=== PATIENT | male | born 1965 | race Caucasian/White ===

== ENCOUNTER → 2024-02-15 12:51 | Outpatient (REF) | payer OTHER, SELFPAY | LOC: HWRAD 12:51 | PROVIDERS: ATTENDING PHYSICIAN Surgery; FAMILY PHYSICIAN Internal Medicine | DX: R10.32 Left lower quadrant pain (principal); N50.812 Left testicular pain | CPT/HCPCS: 72194; Q9967 ==

== ENCOUNTER 2024-06-10 05:56 | Day surgery (SDC) | payer OTHER, SELFPAY ==
[2024-06-04 14:02] VITALS: BMI 34.5
[2024-06-10] VITALS (11 sets, daily range): BP systolic 117–150; BP diastolic 72–97; BMI 34.5
[2024-06-10] MEDS: TYLENOL 1000 MG PO (06:35)
[2024-06-10] MEDS: NORMOSOL-R 1000 IV (06:35)
--- NOTE | 2024-06-10 09:31 | W.SUR.PREOP ---
Pre-Operative Surgical Note
-
I have examined this patient prior to the performance of the scheduled procedure.
The patient's condition is unchanged from the time of the current History and
Physical and the patient is able to undergo the scheduled procedure.
--- NOTE | 2024-06-10 09:31 | W.IMMPOSTOP ---
Surgical Immed Post Op Note
-
Primary Surgeon: Zach Cervantes MD
Assisting Surgeon: None
Pre-op Diagnosis: Left inguinal hernia
Post-op Diagnosis: Same
Procedure Performed: Robotic left inguinal hernia repair with mesh
Anesthesia Type: General
Specimen / Cultures: Left cord lipoma
Estimated Blood Loss: 7 cc
Complications: None
Operative Findings: Visible left retroperitoneal bulge noted in the left iliac space. Very large retroperitoneal cord lipoma, carefully dissected off of the testicular vessels, truncated/partially excised. Inguinal floor reinforced with a large
left mid weight Bard soft mesh.
POST OP PLAN:
Will discharge home after voiding, with an ice pack.
--- NOTE | 2024-06-10 09:34 | OR.RPT ---
Operative Report
Operative Report
Patient Name: Fran Aponte
: 1965
Date of Operation: 06/10/2024
Preoperative Diagnosis: Incarcerated left inguinal hernia
Postoperative Diagnosis: Same
Procedure(s):
Robotic left inguinal Hernia Repair with mesh, (NICK approach)
Surgeon(s):
Dr. Cervantes
Medical Transcription Editor(s):
GAYE Miles
Anesthesia: General
Estimated Blood Loss: 7 cc
Urine Output: None
Drains/Lines/Implants: Large 3D Max Bard mid weight mesh
Specimens: left cord lipoma
Indication for surgery: The patient has a history of groin pain and obesity who was seen in the office and not found to have an impulse or inguinal hernia on exam. A CT scan was performed which demonstrated a fat-containing left inguinal hernia,
consistent with a cord lipoma. Following review of therapeutic options they have elected to undergo a minimally invasive repair.
Findings at the time of surgery:
Patient had a visible bulge over the left iliac space. Very large retroperitoneal cord lipoma dissected off of the underlying testicular vessels and ligated/removed. The inguinal floor was reinforced with a large BARD 3D max mid-weight mesh.
There was no direct or femoral defects.
Details of the operation:
The patient was brought to the Operating Room and placed in the supine position with the arms tucked. IV antibiotics were infused and Venodyne stockings placed. Following uneventful induction of general endotracheal anesthesia, an orogastric tube
were placed. The abdomen was prepped and draped in the usual sterile fashion. The abdomen was entered using a Veress technique which required 1 pass(es), pneumoperitoneum to 15 mmHg was obtained without difficulty. A 8mm trochar was passed through
the abdominal wall roughly 20 cm cephalad to the inguinal canal. We then confirmed that no inadvertent injury was made while passing the trocar or Veress needle. We then placed two additional 8 mm ports in the left upper and right upper quadrants.
We then docked the robot with a Prograsper in the left hand port and monopolar scissors in the right. A bulge over the left retroperitoneum was readily apparent. We did manipulate this slightly which caused some superficial bleeding which was
cauterized. We then began by creating a flap at the level of the ASIS laterally working our way medially to the medial umbilical fold. Staying onto the peritoneum we were able to circumferentially dissect around the peritoneum and and peel it off
of the underlying spermatic cord, taking care to preserve it. This left very large fatty tissue extending from the retroperitoneum up into the hernia defect. We painstakingly dissected off of the underlying testicular vessels and reduced it to the
level of our peritoneal flap and truncated it. Medially we identified the midline pubis as well as Arik's ligament and ensured to dissect 2 cm below the pubic rim over the bladder. After exposure of the entire myopectineal orifice we identified
and reduced: A medium sized indirect inguinal hernia, no direct inguinal hernia, no femoral hernia, a very large cord lipoma, which was partially removed
We then fixated a large 3D max mesh with a 2-0 Vicryl stitch at coopers medially and superior laterally. The flap was then closed with a running 2-0 barbed monocryl suture ensuring that the tail was cut flush with the medial fat pad so that no
barbs were exposed. During the closure of the flap an Angiocath was inserted and 20 cc of quarter percent Marcaine was instilled. The area in the flap cavity was then evacuated of air confirming that the mesh was flush and there were no folds. A
small rent in the peritoneum was noted and closed with 2-0 Vicryl. All needles and instruments were then removed and the robot was undocked. The abdomen was then desufflated, and pneumoperitoneum evacuated. All skin sites were then closed with 4-0
Monocryl followed by Dermabond. Counts were correct and overall, the patient tolerated the procedure well and was taken to the Recovery Room postoperatively in stable condition.
I was the attending physician and performed the procedure with assistance of the CAREER DEVELOPMENT COORDINATOR above. I was present for all portions of the case
Zach Cervantes MD
[2024-06-10] MEDS: DILAUDID 0.5 MG IV ×2 (10:24→10:40)
== END 2024-06-10 12:24 | disposition home or self-care (01) ==
LOC: SDS 05:56
PROVIDERS: ATTENDING PHYSICIAN Surgery; FAMILY PHYSICIAN Internal Medicine; OTHER PHYSICIAN Internal Medicine Cardiovascular Disease
DX: K40.30 Unilateral inguinal hernia, with obstruction, without gangrene, not specified as recurrent (principal); D17.6 Benign lipomatous neoplasm of spermatic cord
CPT/HCPCS: 49650; 88304; 93005; C1781

== ENCOUNTER 2025-02-23 19:38 | Inpatient (IN) | payer OTHER, SELFPAY ==
[2025-02-23] VITALS (8 sets, daily range): BP systolic 116–143; BP diastolic 75–90; PULSE 68–80; BMI 28.9
[2025-02-23 13:53] LABS: % Basophils 0.6 % (0-2); % Eosinophils 6.4 % (0-6); % Immature Granulocytes 0.8 % (0-0.5); % Lymphocytes 32.1 % (20.5-51.1); % Monocytes 8.4 % (1.7-9.3); % Neutrophils 51.7 % (42.2-75.2); Absolute Eosinophils 0.3 10^3/uL (0-0.7); Absolute Lymphocytes 1.7 10^3/uL (1.2-3.4); Absolute Monocytes 0.5 10^3/uL (0.1-0.6); Absolute Neutrophils 2.8 10^3/uL (1.4-6.5); Hematocrit 30.1 % (39.0-52.0); Hemoglobin 10.7 g/dL (13.0-18.0); Mean Corp Hgb Conc. 35.5 g/dL (33.0-37.0); Mean Corpuscular Volume 87.2 fL (80.0-94.0); Mean Platelet Volume 11.3 fL (7.4-10.4); Nucleated Red Blood Cells % 0 % (-); Platelet Count 212 10^3/uL (130-400); Red Blood Cell Count 3.45 10^6/uL (4.70-6.10); Red Cell Dist. Width 12.4 % (11.5-14.5); White Blood Cell Count 5.3 10^3/uL (4.8-10.8)
[2025-02-23 14:11] LABS: ALT (SGPT) 23 U/L (0-50); AST (SGOT) 24 U/L (17-59); Albumin 4.1 g/dl (3.5-5.0); Alkaline Phosphatase 57 U/L (38-126); Blood Urea Nitrogen 35 mg/dl (9-20); Carbon Dioxide 29 mmol/L (22-30); Chloride 104 mmol/L (98-107); Glucose 106 mg/dl (70-99); Lipase 440 U/L (23-300); Potassium 3.8 mmol/L (3.5-5.1); Sodium 140 mmol/L (135-145); Total Bilirubin 0.5 mg/dl (0.2-1.3); Total Protein 6.5 g/dl (6.3-8.2); eGFR > 60.00
--- NOTE | 2025-02-23 18:10 | ED.GENMED ---
History of Present Illness
General
Chief Complaint: Rectal Bleeding
Source: patient
Exam Limitations: none
Time Seen by Provider: 02/23/25 17:34
Nursing documentation reviewed up to this point in time: agreed with
History of Present Illness
History of Present Illness:
60-year-old male past medical history of hypertension hyperlipidemia, GERD presenting to the emergency department today with concerns of black tarry stool starting yesterday ongoing today no significant abdominal pain but did have endoscopy and
colonoscopy with polyp removed 5 days ago. Has had some lightheadedness today. Baseline hemoglobin in 14's.
Past History
Past History
ED Past Medical History: None
ED Past Surgical History: None
Social History
Tobacco: Non-smoker
Review of Systems
Review of Systems
Allergies reviewed?: Yes
All Other Systems: ROS reviewed and negative except as documented in HPI and ROS
Phy Exam
Physical Exam
Physical Exam:
GENERAL: Alert , in no apparent distress
EYE: pupils equal and reactive
NECK: Supple, no significant adenopathy.
ENT: o/p clr, mmm.
CARDIAC: Regular rate and rhythm .
LUNGS: Clear breath sounds bilaterally, no acute respiratory distress, no wheezes/rales/rhonchi
ABDOMEN: Rectal examination revealing black tarry stool guaiac positive, abdomen is otherwise soft, without focal tenderness, no r/g, no cvat
NEUROLOGICAL: Alert and oriented, no focal neuro deficits
SKIN: Warm and dry, skin intact.
MUSCULOSKELETAL: No edema, well perfused.
PSYCH: Normal and appropriate interaction.
Course
Orders/Labs/Results
Orders:
Orders
02/23/25 13:35
Type+Screen Urgent
Complete Blood Count/With Diff Urgent
Comprehensive Metabolic Panel Urgent
Lipase Urgent
02/23/25 17:19
ABO2 Urgent
BBK Wristband Number:
Associate notified that ABO2 has been ordered: JASON
Date: 02/23/25
Time: 13:51
Infection Prevention Specialist ID: [id number]
02/23/25 17:47
0.9% Sodium Chloride 500 ml [Nss] 500 ml IV BOLUS
Pantoprazole [Protonix IV] 80 mg IV NOW STA
Abnormal Lab Results
02/23/25
13:35
RBC 3.45 L 10^6/uL
(4.70-6.10)
Hgb 10.7 L g/dL
(13.0-18.0)
Hct 30.1 L %
(39.0-52.0)
MPV 11.3 H fL
(7.4-10.4)
Immature Gran % 0.8 H %
(0-0.5)
Eosinophils % 6.4 H %
(0-6)
BUN 35 H mg/dl
(9-20)
Glucose 106 H mg/dl
(70-99)
Lipase 440 H U/L
(23-300)
02/23/25 13:35
02/23/25 13:35
Vital Signs
Initial and Last Documented VS:
Initial Vital Signs
Temp Pulse Resp BP Pulse Ox
98.4 F 75 18 143/89 98
02/23/25 13:27 02/23/25 13:27 02/23/25 13:27 02/23/25 13:27 02/23/25 13:27
Last Documented Vital Signs
Temp Pulse Resp BP Pulse Ox
98.4 F 75 18 123/86 97
02/23/25 13:27 02/23/25 13:27 02/23/25 13:27 02/23/25 17:09 02/23/25 17:20
MDM/Problems Addressed
MDM/Problems Addressed:
60-year-old male presenting to the emergency department today with concerns of black tarry stools starting yesterday. Had recent endoscopy with polyp removal 5 days ago with a GI doctor from [facility]. Vital signs normal on arrival here.
Hemoglobin of 10.7 baseline is typically in the 14's most recently in September. Patient did have this record on his phone from [employer]. Otherwise no abdominal pain plan to admit for monitoring. Patient started on Protonix.
*Critical Care Note
Total Time (30-74mins, 75-104mins- exclusive of procedures): Not Applicable
ED Attending Note
-
Portions of this chart may have been created with voice recognition software.� Occasional wrong word or��sound alike� substitutions may have occurred due to the inherent limitations of voice recognition software.
Discharge Plan
Departure
Patient Disposition: Admit
Date of Disposition: 02/23/25
Time of Disposition: 18:13
Admit to: Med/Surg
Admit to doctor: Dona
Presentation/result/management discussed w/ accepting MD/DO: Hospitalist
Patient with high blood pressure during this ER visit?: No
Condition: Good
Covid-19: Not Applicable
Discharge Problem:
Acute upper GI bleed
Prescriptions:
No Action
omeprazole 40 mg Capsule,Delayed Release(Dr/Ec)
40 mg PO BID
loratadine [Claritin] 10 mg Tablet
10 mg PO DAILY
eplerenone 50 mg Tablet
50 mg PO BID
amlodipine-benazepril 10-40 mg Capsule
1 cap PO DAILY
fenofibrate nanocrystallized 145 mg Tablet
145 mg PO DAILY
nebivolol 20 mg Tablet
20 mg PO DAILY
acetaminophen [acetaminophen] 325 mg tablet
650 mg PO Q6HPRN PRN (Reason: mild pain) Qty: 14 0RF
ibuprofen 600 mg tablet
600 mg PO Q6H PRN (Reason: pain) Qty: 14 0RF
Referrals:
Kari Villasenor DO [Family Provider] -
Interventions
Interventions:
*Risk Screen - Suicide Last Done: 02/23/25 13:27
*General Assessment Last Done: 02/23/25 13:27
*Neglect/Abuse Screening Last Done: 02/23/25 13:27
*ED- Fall Risk Assessment Last Done: 02/23/25 17:22
*ED COVID-19 Vaccine History Last Done: 02/23/25 17:22
PV-Frbiis-Klkhhiyofw Assessment Last Done: 02/23/25 17:22
ED- Cardiac Assessment Last Done: 02/23/25 17:22
ED- Pulmonary Assessment Last Done: 02/23/25 17:22
Discharge Date and Time
Print Language: BULGARIAN
[2025-02-23] MEDS: PROTONIX IV 80 MG IV (18:26)
[2025-02-23] MEDS: NSS 500 IV (18:27)
--- NOTE | 2025-02-23 18:42 | HPS.HSE ---
Addendum entered and electronically signed by Jesús Roberson DO 02/23/25 21:36:
Patient seen and examined independently. Agree with findings and plan as set forth by Annie Beltrán PA-C.
Patient is a 60y M with PMH significant for GERD / Goodwin's esophagus who presents to ED complaining of black, tarry stools since yesterday and general fatigue / malaise. Patient underwent EGD and colonoscopy on Monday at an outside GI
center (Dr. Holley). He had 'multiple' polypectomies done during the EGD - as well as esophageal biopsies. Patient felt well until Monday when he states he 'felt like crap' and noted the dark colored stools.
Ass:
Post-Polypectomy Bleeding / UGIB
Acute Blood Loss Anemia secondary to the above
GERD / Goodwin's Esophagus
Benign Hypertension
CASSY on CPAP
Plan:
Admit for further evaluation and treatment.
IV PPI.
Follow H&H and transfuse if needed.
GI evaluation for additional recommendations / possible repeat EGD.
Original Note:
Family Physician
-
Family Physician: Kari Villasenor
Chief Complaint
-
Black Tarry Stools
History of Present Illness
Patient is a 60 y/o male past medical history of hypertension, hyperlipidemia, asthma, and GERD / Goodwin's Esophagus who presents with black tarry stools. Patient had an upper endoscopy and colonoscopy on Monday with Dr Holley at [facility]. Patient reports during the procedure they took biopsy of his esophagus and also removed some polyps in the stomach / small intestine. Yesterday patient developed black stools. Today he noted dizziness which prompted him to come to the
emergency department for evaluation.
Medical History
Past Medical History
Past Medical History: Reports Other
Additional Past Medical History:
Essential Hypertension
Hyperlipidemia
Asthma
Obstructive Sleep Apnea
Psoriasis
GERD / Goodwin's Esophagus
Past Surgical History: Reports Other
Additional Past Surgical History:
Right MCL Repair
Left Inguinal Hernia Repair with Mesh
Social History
Tobacco: Non-smoker
Alcohol: Occasional
Family History
Family History: Not pertinent
Allergies / Home Medications
Allergies reflects when Allergies were last updated in [employer].
Home Medications with original date entered in [employer]
Allergy/Medication List:
Allergies
Allergy/AdvReac Type Severity Reaction Status Date / Time
banana Allergy Itching Verified 02/23/25 13:27
codeine Allergy '[place] like Verified 02/23/25 13:27
I was
dying'
Penicillins Allergy Unknown Verified 02/23/25 13:27
cantalope Allergy Hives Uncoded 06/10/24 06:20
Home Medications
amlodipine 10 mg-benazepril 40 mg capsule 1 cap PO QPM 06/05/24
eplerenone 50 mg tablet 50 mg PO BID 06/05/24
fenofibrate nanocrystallized 145 mg tablet 145 mg PO NOON 06/05/24
loratadine 10 mg tablet (Claritin) 10 mg PO DAILY 06/05/24
nebivolol 20 mg tablet 20 mg PO DAILY 06/05/24
omeprazole 40 mg capsule,delayed release 40 mg PO BID 06/05/24
acetaminophen 325 mg tablet 650 mg (2 x 325 mg) PO Q6HPRN PRN mild pain #14 tabs 06/10/24
ibuprofen 600 mg tablet 600 mg PO Q6H PRN pain #14 tabs 06/10/24
atorvastatin 20 mg tablet 20 mg PO HS 02/23/25
fluticasone furoate 200 mcg-vilanterol 25 mcg/dose inhalation powder (Breo Ellipta) 1 inh inhalation DAILYPRN PRN sob 02/23/25
tirzepatide 5 mg/0.5 mL subcutaneous pen injector (Mounjaro) 5 mg SC TH 02/23/25
Review of Systems
-
A 12 point ROS was completed and negative except as noted: Yes
Constitutional: Denies Fever or Chills
Respiratory: Denies Cough or Trouble Breathing
Cardiac: Denies Chest Pain or Palpitations
Physical Exam
Vital Signs
Vital Signs
Temp Pulse Resp BP Pulse Ox
98.4 F 75 18 130/84 97
02/23/25 13:27 02/23/25 13:27 02/23/25 13:27 02/23/25 18:00 02/23/25 18:15
Physical Exam
General: Comfortable, Conversant and Other (Appears slightly pale)
HEENT: Anicteric and Moist mucous membranes
Respiratory: Clear and Non Labored Respirations
Cardiac: S1/S2 and Regular Rhythm
GI: Soft and Non Tender
Rectal: Hem Positive (Per ED provider)
Musculoskeletal: No Clubbing and No Cyanosis
Skin: Warm and Dry
Neuro: Awake, Alert, Oriented and Nonfocal/grossly intact
Psych: Calm
Laboratory Results
-
02/23/25 13:35
02/23/25 13:35
Laboratory Results
Total Bilirubin 0.5 mg/dl (0.2-1.3) 02/23/25 13:35
AST 24 U/L (17-59) 02/23/25 13:35
ALT 23 U/L (0-50) 02/23/25 13:35
Alkaline Phosphatase 57 U/L (38-126) 02/23/25 13:35
Lipase 440 U/L (23-300) H 02/23/25 13:35
Data Reviewed
-
Lab Data: Labs Reviewed by me
Impression/Plan
-
GI Bleed, likely upper in nature
-Attempt to obtain records from recent endoscopy procedures
-Consult GI
-Continue Protonix 40mg IV BID
-Continue NPO/IVFs
Acute Blood Loss Anemia secondary to GI Bleed
-Trend serial H&H
-Blood consent obtained by ED and scanned into medical chart
Essential Hypertension
-Continue amlodipine/benazepril, eplerenone and nebivolol with hold parameters
Hyperlipidemia
-Continue atorvastatin and fenofibrate
Obstructive Sleep Apnea
-Continue CPAP - Patient's will bring from home
DVT proph: SCDs
Code Status: Full Code
--- NOTE | 2025-02-23 19:47 | EDRN ---
Report received, patient ambulated into the restroom to urinate without difficulty, report sent to the floor, patient aware will go to room soon.
[2025-02-23 19:53] LABS: Hematocrit 29.4 % (39.0-52.0); Hemoglobin 10.6 g/dL (13.0-18.0)
[2025-02-23] MEDS: D5/0.45%NSS with KCL 10 MEQ 1000 IV (21:00)
[2025-02-23] MEDS: INSPRA 50 MG PO (21:08)
[2025-02-23] MEDS: LIPITOR 20 MG PO (21:10)
--- NOTE | 2025-02-24 00:14 | PTCARENOTE ---
Pt is a 60y M arrived on 2S at 20:25. Pt's PMH significant for GERD / Goodwin's esophagus also HTN, HLD, Sleep Apnea (CPAP), Arthritis, Psoriasis, presented to ED complaining of black, tarry stools since yesterday and general fatigue / malaise.
Pt underwent EGD and colonoscopy on Monday at an outside GI center (Dr. Holley). He had 'multiple' polypectomies done during the EGD - as well as esophageal biopsies. Pt felt well until Monday when he states he 'felt like crap' and noted
the dark colored stools. Pt NPO with IV fluids, Q8 H&H ordered. 4am, Noon, 20:00. Pt AOx3, bed in a low position, call light in reach, care on-going.
[2025-02-24 04:42] LABS: Hematocrit 26.4 % (39.0-52.0); Hemoglobin 9.2 g/dL (13.0-18.0)
--- NOTE | 2025-02-24 07:34 | CON.GI ---
Consultation
-
Date/Time Consultation Requested: 02/23/25
Date/Time Consultation Performed: 02/24/25
Requesting Provider: Da Espinosa
Performing Provider: Shyann Luna
Reason for Consultation: Melena
Medical History
Chief Complaint / HPI
Chief Complaint: Melena, post-polypectomy bleeding
History of Present Illness:
Early Fay is a 60-year-old male with past medical history of hypertension, CASSY on bipap, hyperlipidemia, asthma, fatty liver, long segment Goodwin's esophagus who presents with 1 day of black tarry stools following EGD and colonoscopy with
[facility] on 02/19/2025. He had his surveillance EGD for his Goodwin's with esophageal biopsies taken as well as multiple gastric polyps removed as well as a colonoscopy. He denies having any colon polyps removed. We are awaiting official
records from his procedures for review. States on monday night he had some nausea and decreased appetite. He felt he may be constipated, so took some miralax and then started having multiple episodes of watery black tarry stool, prompting him to
come in for evaluation. He denies blood thinners or regular use of NSAIDs. Denies prior GI bleeding in the past. He takes omeprazole 40mg BID, has been on it for over 5 years.
Hgb on arrival 10.7 --> 10.6 --> 9.2. No recent prior CBC to compare baseline. Reports last melenic bowel movement was yesterday at 10 AM. BUN elevated to 35. He has remained hemodynamically stable.
Past Medical History
Past Medical History: Other (hypertension, CASSY on bipap, hyperlipidemia, asthma, fatty liver, long segment Goodwin's esophagus)
Past Surgical History: Other (hernia repair)
Social History
Tobacco: Non-Smoker
Alcohol: Occasional
Family History
Family History: Reviewed & Not Pertinent
Allergies / Home Medications
Allergy/AdvReac Type Severity Reaction Status Date / Time
banana Allergy Itching Verified 02/23/25 13:27
codeine Allergy 'Breeding like Verified 02/23/25 13:27
I was
dying'
Penicillins Allergy Unknown Verified 02/23/25 13:27
cantalope Allergy Hives Uncoded 06/10/24 06:20
�Medication �Instructions �Recorded
amlodipine 10 mg-benazepril 40 mg 1 cap PO QPM 06/05/24
capsule
eplerenone 50 mg tablet 50 mg PO BID 06/05/24
fenofibrate nanocrystallized 145 145 mg PO NOON 06/05/24
mg tablet
loratadine 10 mg tablet (Claritin) 10 mg PO DAILY 06/05/24
nebivolol 20 mg tablet 20 mg PO DAILY 06/05/24
omeprazole 40 mg capsule,delayed 40 mg PO BID 06/05/24
release
acetaminophen 325 mg tablet 650 mg (2 x 325 mg) PO Q6HPRN PRN 06/10/24
mild pain #14 tabs
ibuprofen 600 mg tablet 600 mg PO Q6H PRN pain #14 tabs 06/10/24
atorvastatin 20 mg tablet 20 mg PO HS 02/23/25
fluticasone furoate 200 1 inh inhalation DAILYPRN PRN sob 02/23/25
mcg-vilanterol 25 mcg/dose
inhalation powder (Breo Ellipta)
tirzepatide 5 mg/0.5 mL 5 mg SC TH 02/23/25
subcutaneous pen injector
(Mounjaro)
Review of Systems
-
History Source: Patient
All other systems: A 12 pt ROS was Negative except as stated above in HPI
Vital Signs
Temp Pulse Resp BP Pulse Ox
98.1 F 68 18 129/75 98
02/23/25 22:07 02/23/25 22:07 02/23/25 22:07 02/23/25 22:07 02/23/25 22:07
Physical Exam
Exam
General: Well Developed, Well Nourished and No Apparent Distress
GI: Soft, Non Tender, Non Distended and Normal Bowel Sounds
Results
WBC 5.3 10^3/uL (4.8-10.8) 02/23/25 13:35
Hgb 9.2 g/dL (13.0-18.0) L 02/24/25 04:22
Hct 26.4 % (39.0-52.0) L 02/24/25 04:22
MCV 87.2 fL (80.0-94.0) 02/23/25 13:35
Plt Count 212 10^3/uL (130-400) 02/23/25 13:35
Absolute Neuts (auto) 2.8 10^3/uL (1.4-6.5) 02/23/25 13:35
Sodium 140 mmol/L (135-145) 02/23/25 13:35
Potassium 3.8 mmol/L (3.5-5.1) 02/23/25 13:35
Chloride 104 mmol/L (98-107) 02/23/25 13:35
Carbon Dioxide 29 mmol/L (22-30) 02/23/25 13:35
BUN 35 mg/dl (9-20) H 02/23/25 13:35
Creatinine 1.1 mg/dL (0.7-1.3) 02/23/25 13:35
Calcium 10.0 mg/dl (8.4-10.2) 02/23/25 13:35
Total Bilirubin 0.5 mg/dl (0.2-1.3) 02/23/25 13:35
AST 24 U/L (17-59) 02/23/25 13:35
ALT 23 U/L (0-50) 02/23/25 13:35
Alkaline Phosphatase 57 U/L (38-126) 02/23/25 13:35
Lipase 440 U/L (23-300) H 02/23/25 13:35
Diagnostic Image Results:
Prior GI Procedures:
EGD:
Colonoscopy:
Assessment / Plan
-
60-year-old male with past medical history of hypertension, CASSY on bipap, hyperlipidemia, asthma, fatty liver, long segment Goodwin's esophagus who presents with 1 x of melena with concern for post-polypectomy bleeding.
#Melena following EGD/Colonoscopy with reported removal of multiple gastric polyps
-Hgb 10.7 --> 10.6 --> 9.2, unknown baseline
-BUN elevated to 35
-Suspect bleeding from polypectomy site, awaiting records from recent procedures
-he remains hemodynamically stable, last melenic BM yesterday at 10 AM
-If hemoglobin remains stable, suspect bleeding resolved, if continues to have melena/drops in hemoglobin, will plan to proceed with EGD
-maintain 2 large bore peripheral gauge IVs
-H&H q12 hours
-active T&C
-IVF
-PPI gtt
-transfuse for Hgb <7
-NPO until AM labs return
Hx Long Segment Barretts
-per patient reports, nondysplastic
-remains on omperazole 40mg BID
-follows with Dr. Holley
Data Reviewed
-
Old Records: Requested
-
-
Thank you for consultation and allowing me to participate in the patient's care. Please call the sales operations director GI physician during the after hours with any questions or concerns.
[2025-02-24 08:00] VITALS: BP 115/76
--- NOTE | 2025-02-24 08:52 | W.PN.HOSP.TC ---
Today's Communication/Plan
-
Continue IV PPI
Continue to monitor Hgb and transfuse PRBC to maintain Hgb>7
Clear Liquids Diet, NPO after midnight
EGD tomorrow
Bedrest
Assessment / Plan
Assessment / Plan
Physical Exam
General: Not in acute distress
HEENT: Normocephalic. Moist mucous membranes
Respiratory: Clear to Auscultation Bilaterally
Cardiac: S1/S2 and Regular Rhythm
GI: Soft and Non Tender. Positive bowel sounds.
Musculoskeletal: No Cyanosis
Skin: Warm and Dry
Neuro: Awake, Alert, Oriented and Nonfocal/grossly intact
Psych: Calm
Assessment/Plan
60 y/o male with past medical history of hypertension, hyperlipidemia, asthma, and GERD / Goodwin's Esophagus who presented with black tarry stools. Patient had an upper endoscopy and colonoscopy on February 19, [address] Holley at [facility]. Patient reports during the procedure they took biopsy of his esophagus and also removed some polyps in the stomach / small intestine. Patient developed on 02/22/25 black stools. On 02/23/25, patient noted dizziness which prompted him to
come to the emergency department for evaluation.
GI Bleed, likely upper in nature following EGD/Colonoscopy with reported removal on 02/19/25 of multiple gastric polyps
-Attempt to obtain records from recent endoscopy procedures
-Possible bleeding from polypectomy on 02/19/25
-Consult GI
-Continue Protonix 40mg IV BID
-Continue NPO (until Hgb returns)/IVFs
-BUN noted to be elevated which would be consistent with upper GI bleed
-Hgb decreased from 10.7 to 9.2
-Since patient continues to have melena/drops in hemoglobin, will plan to proceed with EGD - maintain 2 large bore peripheral gauge IVs
-Continue to monitor Hgb
-Bedrest
Acute Blood Loss Anemia secondary to GI Bleed
-Trend serial H&H, transfuse to maintain Hgb>7
-Blood consent obtained by ED and scanned into medical chart
Essential Hypertension
-Continue amlodipine/benazepril, eplerenone and nebivolol with hold parameters
Hyperlipidemia
-Continue atorvastatin and fenofibrate
Obstructive Sleep Apnea
-Continue CPAP - Patient's will bring from home
DVT proph: SCDs
Code Status: Full Code
Anticipated Discharge: > 48 hours
Subjective/Interval History
-
Date of Service: February 24, 2025
Patient was seen and examined. He reported some on and off mild dizziness, and is still having dark black stools, but denied any other symptoms or complaints.
Objective Data
-
Labs:
Laboratory Results
02/24/25 02/24/25 02/24/25
04:22 12:00 20:00
Hgb 9.2 L Pending Pending
Hct 26.4 L Pending Pending
Vital Signs:
Vital Signs
Temp Pulse Resp BP Pulse Ox
97.6 F 77 16 115/76 99
02/24/25 08:00 02/24/25 08:00 02/24/25 08:00 02/24/25 08:00 02/24/25 08:00
I&O
02/23/25 02/24/25 02/25/25
06:59 06:59 06:59
Intake Total 800 / 800
Balance 800 / 800
[2025-02-24] MEDS: BYSTOLIC 20 MG PO (09:38)
[2025-02-24] MEDS: INSPRA 50 MG PO ×2 (09:38→20:02)
[2025-02-24] MEDS: CLARITIN 10 MG PO (09:38)
[2025-02-24] MEDS: PROTONIX IV 40 MG IV ×2 (09:40→20:02)
[2025-02-24] MEDS: NSS (PRESERVATIVE FREE) 10 ML IV ×2 (09:40→20:02)
[2025-02-24] MEDS: D5/0.45%NSS with KCL 10 MEQ 1000 IV ×2 (09:43→20:13)
--- NOTE | 2025-02-24 12:02 | CM ---
Met with pt at bedside. Initial assessment completed
Pt lives with his in a 2 story home; no steps to enter - bath of FF
Independent, works FT from home
DME - none
SNF/HH - no past hx
Has ride at d/c
PCP - Kari Poole
Pharm - [facility] in [place]
Plan - anticipate home no needs
[2025-02-24 12:03] LABS: Hematocrit 26.3 % (39.0-52.0); Hemoglobin 9.3 g/dL (13.0-18.0)
[2025-02-24 12:13] LABS: Blood Urea Nitrogen 22 mg/dl (9-20); Calcium 8.9 mg/dl (8.4-10.2); Carbon Dioxide 29 mmol/L (22-30); Chloride 107 mmol/L (98-107); Estimated Creatinine Clearance 81 ml/min; Glucose 101 mg/dl (70-99); Potassium 3.7 mmol/L (3.5-5.1); Sodium 141 mmol/L (135-145); eGFR > 60.00
[2025-02-24] MEDS: TRICOR 145 MG PO (12:44)
[2025-02-24 15:50] VITALS: BP 117/78
[2025-02-24] MEDS: LOTREL 5 MG/20 MG 2 CAPSULE PO (17:44)
[2025-02-24] MEDS: LIPITOR 20 MG PO (20:14)
[2025-02-24 21:15] LABS: Hematocrit 26.2 % (39.0-52.0); Hemoglobin 9.4 g/dL (13.0-18.0)
[2025-02-24 23:48] VITALS: BP 123/72
[2025-02-25 07:35] VITALS: BP 127/72
[2025-02-25 07:41] LABS: Hematocrit 27.2 % (39.0-52.0); Hemoglobin 9.6 g/dL (13.0-18.0)
[2025-02-25] MEDS: INSPRA 50 MG PO ×2 (07:45→21:40)
[2025-02-25] MEDS: BYSTOLIC 20 MG PO (07:45)
[2025-02-25] MEDS: PROTONIX IV 40 MG IV (07:46)
[2025-02-25] MEDS: CLARITIN 10 MG PO (07:46)
[2025-02-25] MEDS: NSS (PRESERVATIVE FREE) 10 ML IV (07:46)
[2025-02-25 07:50] LABS: Hematocrit 27.5 % (39.0-52.0); Hemoglobin 9.5 g/dL (13.0-18.0); Mean Corp Hgb Conc. 34.5 g/dL (33.0-37.0); Mean Corpuscular Hgb 30.8 pg (27.0-31.0); Mean Corpuscular Volume 89.3 fL (80.0-94.0); Mean Platelet Volume 11.5 fL (7.4-10.4); Platelet Count 188 10^3/uL (130-400); Red Blood Cell Count 3.08 10^6/uL (4.70-6.10); Red Cell Dist. Width 12.9 % (11.5-14.5); White Blood Cell Count 4.4 10^3/uL (4.8-10.8)
[2025-02-25 07:55] LABS: Blood Urea Nitrogen 19 mg/dl (9-20); Carbon Dioxide 25 mmol/L (22-30); Chloride 109 mmol/L (98-107); Estimated Creatinine Clearance 81 ml/min; Glucose 85 mg/dl (70-99); Potassium 3.9 mmol/L (3.5-5.1); Sodium 142 mmol/L (135-145); eGFR > 60.00
[2025-02-25 09:45] VITALS: BP 112/70
--- NOTE | 2025-02-25 09:49 | W.PN.HOSP.TC ---
Today's Communication/Plan
-
EGD findings below
Continue PPI
Monitor H&H
If patient's dizziness improves, Hgb stable going into tomorrow, can be discharged
Assessment / Plan
Assessment / Plan
Physical Exam
General: Not in acute distress
HEENT: Normocephalic. Moist mucous membranes
Respiratory: Clear to Auscultation Bilaterally
Cardiac: S1/S2 and Regular Rhythm
GI: Soft and Non Tender. Positive bowel sounds.
Musculoskeletal: No Cyanosis
Skin: Warm and Dry
Neuro: Awake, Alert, Oriented and Nonfocal/grossly intact
Psych: Calm
Assessment/Plan
60 y/o male with past medical history of hypertension, hyperlipidemia, asthma, and GERD / Goodwin's Esophagus who presented with black tarry stools. Patient had an upper endoscopy and colonoscopy on February 19, [address] Holley at [facility]
[place]. Patient reports during the procedure they took biopsy of his esophagus and also removed some polyps in the stomach / small intestine. Patient developed on 02/22/25 black stools. On 02/23/25, patient noted dizziness which prompted him to
come to the emergency department for evaluation.
GI Bleed, likely upper in nature following EGD/Colonoscopy with reported removal on 02/19/25 of multiple gastric polyps
Esophageal mucosal changes secondary to established long-segment Goodwin's disease with evidence of recent biopsies - no signs of bleeding in the esophagus (EGD finding on 02/25/25)
Small hiatal hernia (EGD finding on 02/25/25)
Multiple gastric polyps - some with mild oozing on contact; treated with argon plasma coagulation (APC) [based on EGD performed on 02/25/25]
-Attempt to obtain records from recent endoscopy procedures
-Possible bleeding from polypectomy on 02/19/25
-Consult GI
-Since patient continued to have melena/drops in hemoglobin, EGD performed today
-Continue Protonix 40mg BID x 1 week, followed by Protonix 40 mg daily
-If hgb is stable tonight and in the morning and orthostatics are normal, okay for discharge tomorrow morning as discussed with gastroenterology
-Advance diet as tolerated
-BUN noted to be elevated which would be consistent with upper GI bleed
-Hgb decreased from 10.7 to 9.2
-IV iron on 02/25/25
-Continue to monitor Hgb
-Follow up with Dr. Holley of GI
Acute Blood Loss Anemia secondary to GI Bleed
-Trend serial H&H, transfuse to maintain Hgb>7
-Blood consent obtained by ED and scanned into medical chart
Essential Hypertension
-Continue amlodipine/benazepril, eplerenone and nebivolol with hold parameters
Hyperlipidemia
-Continue atorvastatin and fenofibrate
Obstructive Sleep Apnea
-Continue CPAP - Patient's will bring from home
DVT proph: SCDs
Code Status: Full Code
Anticipated Discharge: Within 24 hours
Subjective/Interval History
-
Date of Service: February 25, 2025
Patient was seen and examined in PACU this morning after his EGD was completed. He still reported some mild dizziness, but denied any other new symptoms or complaints. He said his last bowel movement which was dark black in color, was yesterday
morning.
Objective Data
-
Labs:
Laboratory Results
02/25/25 02/25/25 02/25/25
05:28 05:28 05:28
WBC 4.4 L
Hgb 9.6 L 9.5 L
Hct 27.2 L 27.5 L
Plt Count 188
Sodium 142
Potassium 3.9
Chloride 109 H
Carbon Dioxide 25
BUN 19
Creatinine 1.1
Glucose 85
Calcium 9.0
Vital Signs:
Vital Signs
Temp Pulse Resp BP Pulse Ox
98.0 F 67 16 127/72 98
02/25/25 07:35 02/25/25 07:35 02/25/25 07:35 02/25/25 07:45 02/25/25 07:35
I&O
02/24/25 02/25/25 02/26/25
06:59 06:59 06:59
Intake Total 800 / 800 1040 / 1040
Output Total 2225 / 2225
Balance 800 / 800 -1185 / -1185
[2025-02-25 09:56] VITALS: BP 120/79
[2025-02-25] MEDS: TRICOR 145 MG PO (11:50)
[2025-02-25] MEDS: FERRLECIT 110 MG IV (13:24)
--- NOTE | 2025-02-25 14:33 | CM ---
Chart reviewed
Endoscopy today
Plan - anticipate home no needs
[2025-02-25 15:30] VITALS: BP 117/73; BP 124/75; BP 134/74; PULSE 69; PULSE 71; PULSE 75
[2025-02-25] MEDS: LOTREL 5 MG/20 MG 2 CAPSULE PO (17:25)
[2025-02-25] MEDS: LIPITOR 20 MG PO (21:40)
[2025-02-25] MEDS: PROTONIX 40 MG PO (21:40)
[2025-02-25] MEDS: NSS (PRESERVATIVE FREE) IV (21:42)
[2025-02-25 23:40] VITALS: BP 126/77
[2025-02-26 07:35] LABS: Hematocrit 27.2 % (39.0-52.0); Hemoglobin 9.7 g/dL (13.0-18.0); Mean Corp Hgb Conc. 35.7 g/dL (33.0-37.0); Mean Corpuscular Hgb 31.5 pg (27.0-31.0); Mean Corpuscular Volume 88.3 fL (80.0-94.0); Mean Platelet Volume 11.7 fL (7.4-10.4); Platelet Count 194 10^3/uL (130-400); Red Blood Cell Count 3.08 10^6/uL (4.70-6.10); Red Cell Dist. Width 12.8 % (11.5-14.5); White Blood Cell Count 5.5 10^3/uL (4.8-10.8)
[2025-02-26 07:45] VITALS: BP 132/73
[2025-02-26 07:47] LABS: Blood Urea Nitrogen 20 mg/dl (9-20); Calcium 9.4 mg/dl (8.4-10.2); Carbon Dioxide 25 mmol/L (22-30); Chloride 108 mmol/L (98-107); Estimated Creatinine Clearance 74 ml/min; Glucose 89 mg/dl (70-99); Sodium 142 mmol/L (135-145); eGFR > 60.00
--- NOTE | 2025-02-26 08:17 | W.PN.HOSP.TC ---
Today's Communication/Plan
-
Discharge today
Assessment / Plan
Assessment / Plan
Physical Exam
General: Not in acute distress
HEENT: Normocephalic. Moist mucous membranes
Respiratory: Clear to Auscultation Bilaterally
Cardiac: S1/S2 and Regular Rhythm
GI: Soft and Non Tender. Positive bowel sounds.
Musculoskeletal: No Cyanosis
Skin: Warm and Dry
Neuro: Awake, Alert, Oriented and Nonfocal/grossly intact
Psych: Calm
Assessment/Plan
60 y/o male with past medical history of hypertension, hyperlipidemia, asthma, and GERD / Goodwin's Esophagus who presented with black tarry stools. Patient had an upper endoscopy and colonoscopy on February 19, [address]ley at [facility]. Patient reports during the procedure they took biopsy of his esophagus and also removed some polyps in the stomach / small intestine. Patient developed on 02/22/25 black stools. On 02/23/25, patient noted dizziness which prompted him to
come to the emergency department for evaluation.
GI Bleed, likely upper in nature following EGD/Colonoscopy with reported removal on 02/19/25 of multiple gastric polyps
Esophageal mucosal changes secondary to established long-segment Goodwin's disease with evidence of recent biopsies - no signs of bleeding in the esophagus (EGD finding on 02/25/25)
Small hiatal hernia (EGD finding on 02/25/25)
Multiple gastric polyps - some with mild oozing on contact; treated with argon plasma coagulation (APC) [based on EGD performed on 02/25/25]
-Attempt to obtain records from recent endoscopy procedures
-Possible bleeding from polypectomy on 02/19/25
-Consult GI
-Since patient continued to have melena/drops in hemoglobin, EGD performed today
-Continue home Omeprazole 40 mg BID -- confirmed this with Dr. Berkowitz today
-Advance diet as tolerated
-BUN noted to be elevated which would be consistent with upper GI bleed
-Hgb stable
-IV iron on 02/25/25
-Follow up with Dr. Holley of GI
-Recheck CBC outpatient
Acute Blood Loss Anemia secondary to GI Bleed
-Trend serial H&H, transfuse to maintain Hgb>7
-Blood consent obtained by ED and scanned into medical chart
Essential Hypertension
-Continue amlodipine/benazepril, eplerenone and nebivolol with hold parameters
Hyperlipidemia
-Continue atorvastatin and fenofibrate
Obstructive Sleep Apnea
-Continue CPAP - Patient's will bring from home
DVT proph: SCDs
Code Status: Full Code
More than 30 minutes spent in discharge including
Final examination of the patient
Summarizing hospital stay
Instructions for continuing care to all relevant caregivers
Preparation of discharge records, prescriptions, and referral forms
Total time spent (in minutes): 37
Anticipated Discharge: Today
Subjective/Interval History
-
Date of Service: February 26, 2025
Patient was seen and examined. He reported that his dizziness has resolved, denied any chest pain or any other complaints. He is able to stand without any dizziness. He has had dark brown bowel movements overnight, no more dark black stools.
Objective Data
-
Labs:
Laboratory Results
02/26/25
05:50
WBC 5.5
Hgb 9.7 L
Hct 27.2 L
Plt Count 194
Sodium 142
Potassium 4.0
Chloride 108 H
Carbon Dioxide 25
BUN 20
Creatinine 1.2
Glucose 89
Calcium 9.4
Vital Signs:
Vital Signs
Temp Pulse Resp BP Pulse Ox
97.6 F 67 16 132/73 97
02/26/25 07:45 02/26/25 07:45 02/26/25 07:45 02/26/25 07:45 02/26/25 07:45
I&O
02/25/25 02/26/25 02/27/25
06:59 06:59 06:59
Intake Total 1040 / 1040 1524 / 1524
Output Total 2224 / 2224
Balance -1185 / -1185 1524 / 1524
[2025-02-26] MEDS: BYSTOLIC 20 MG PO (09:07)
[2025-02-26] MEDS: CLARITIN 10 MG PO (09:07)
[2025-02-26] MEDS: INSPRA 50 MG PO (09:08)
[2025-02-26] MEDS: PROTONIX 40 MG PO (09:08)
[2025-02-26] MEDS: NSS (PRESERVATIVE FREE) IV (09:09)
[2025-02-26 09:12] VITALS: BP 117/69; BP 121/67; BP 122/69; PULSE 69; PULSE 72; PULSE 75
--- NOTE | 2025-02-26 10:21 | W.PN.GI.CBS2 ---
Today's Communication / Plan
-
- discharge
Assessment / Plan
-
60-year-old male with past medical history of hypertension, CASSY on bipap, hyperlipidemia, asthma, fatty liver, long segment Goodwin's esophagus who presents with 1 x of melena with concern for post-polypectomy bleeding.
#Melena following EGD/Colonoscopy with reported removal of multiple gastric polyps
Hx Long Segment Barretts
-per patient reports, nondysplastic
-remains on omeprazole 40mg BID
-follows with Dr. Holley
02/25/2025 - Esophageal mucosal changes secondary to established
long-segment Goodwin's disease with evidence of recent
biopsies - no signs of bleeding in the esophagus.
- Small hiatal hernia.
- Multiple gastric polyps - some with mild oozing on
contact. Treated with argon plasma coagulation (APC).
- Normal examined duodenum.
- No specimens collected.
Okay for discharge from GI perspective
Already on BID ppi for Goodwin's
Follow-up with Dr. Holley
Subjective
Subjective
Date of Service: February 26, 2025
No symptoms. Stools are dark brown but improving no longer black and hemoglobin stable
Objective
Data Reviewed
Laboratory Data:
Laboratory Results
02/26/25 05:50
02/26/25 05:50
Laboratory Results
Total Bilirubin 0.5 mg/dl (0.2-1.3) 02/23/25 13:35
AST 24 U/L (17-59) 02/23/25 13:35
ALT 23 U/L (0-50) 02/23/25 13:35
Alkaline Phosphatase 57 U/L (38-126) 02/23/25 13:35
Lipase 440 U/L (23-300) H 02/23/25 13:35
Vital Signs and I&O:
Vital Signs
Temp Pulse Resp BP Pulse Ox
97.6 F 67 16 132/73 97
02/26/25 07:45 02/26/25 09:07 02/26/25 07:45 02/26/25 09:07 02/26/25 07:45
I&O
02/25/25 02/26/25 02/27/25
06:59 06:59 06:59
Intake Total 1040 / 1040 1524 / 1524
Output Total 2225 / 2225
Balance -1185 / -1185 1524 / 1524
Physical Exam
Physical Exam
HEENT: Anicteric
Cardiology: Normal Sinus Rhythm
Pulmonary: Clear
GI: Soft
Neuro: Non Focal
--- NOTE | 2025-02-26 11:59 | CM ---
Reviewed the chart notes. Potential discharge today.
Plan: Discharge to home with no needs anticipated.
[2025-02-26] MEDS: TRICOR 145 MG PO (12:24)
--- NOTE | 2025-02-26 13:31 | W.DCSUMMARY ---
Discharge Summary
Discharge Data
Date of Admission: 02/23/25
Date of Discharge: 02/26/25
Total time spent discharging patient (in min): 37
-
Pending Results: No
Hospital Course
60 y/o male with past medical history significant for GERD/Goodwin's esophagus, recent (about 4 days prior) EGD and colonoscopy with esophageal biopsies and multiple stomach polypectomies performed at that time, who presented complaining of black,
tarry stools since the day before, and general fatigue/malaise. Patient also reported dizziness. Patient was started on intravenous proton pump inhibitor and gastroenterology was consulted. Patient was placed on bedrest. Patient continued to have
dark black stools. EGD/upper endoscopy was performed on February 25, 2025, and it showed esophageal mucosal changes secondary to established long-segment Goodwin's disease with evidence of recent biopsies - no signs of bleeding in the esophagus, small
hiatal hernia, and multiple gastric polyps - some with mild oozing on contact - treated with argon plasma coagulation (APC). Patient received intravenous iron. Patient's dizziness resolved and hemoglobin remained stable, his melena resolved, and he
was stable for discharge with close outpatient with his outpatient archery instructor.
Discharge Plan
-
Patient Disposition: Home (Routine Discharge)
Discharge Diagnosis/Procedures: Gastrointestinal Bleeding
Esophageal mucosal changes secondary to established long-segment Goodwin's disease with evidence of recent biopsies - no signs of bleeding in the esophagus (EGD finding on 02/25/25)
Small hiatal hernia (EGD finding on 02/25/25)
Multiple gastric polyps - some with mild oozing on contact; treated with argon plasma coagulation (APC) [based on EGD performed on 02/25/25]
Acute Blood Loss Anemia secondary to GI Bleed
Essential Hypertension
Hyperlipidemia
Obstructive Sleep Apnea
Condition: Good
Diet: As tolerated, Low Fat, Low Cholesterol, Low Sodium and Other diet
Additional Diets: FOLLOW AN IDDSI 6 - SOFT & BITE SIZED DIET FOR NOW -- FOLLOW-UP WITH YOUR PCP REGARDING WHEN YOU CAN ADVANCE IT
Activity: As tolerated
Blood Work: CBC and BMP within 7 days from hospital discharge
Activity Restrictions/Additional Instructions:
Follow-up with your archery instructor Dr. Holley
Referrals:
Kari Villasenor, DO [Family Provider] - in less than 1 week
Additional Discharge Medication Instructions: Ibuprofen stopped
Prescriptions:
Continued
omeprazole 40 mg Capsule,Delayed Release(Dr/Ec)
40 mg PO BID
loratadine [Claritin] 10 mg Tablet
10 mg PO DAILY
eplerenone 50 mg Tablet
50 mg PO BID
amlodipine-benazepril 10-40 mg Capsule
1 cap PO QPM
fenofibrate nanocrystallized 145 mg Tablet
145 mg PO NOON
nebivolol 20 mg Tablet
20 mg PO DAILY
acetaminophen 325 mg tablet
650 mg PO Q6HPRN PRN (Reason: mild pain) Qty: 14 0RF
atorvastatin 20 mg Tablet
20 mg PO HS
Mounjaro 5 mg/0.5 mL Pen Injector
5 mg SC TH
fluticasone furoate-vilanterol [Breo Ellipta] 200-25 mcg/dose Blister With Device
1 inh INHALATION DAILYPRN PRN (Reason: sob)
Rx Instructions:
prn
Discontinued
ibuprofen 600 mg tablet
600 mg PO Q6H PRN (Reason: pain) Qty: 14 0RF
Rx Instructions:
per pt prn about a month ago
Discharge Orders:
Discharge Patient (As Directed); Ordered 02/26/25
Ordered By: Ko Reeves
Discharge Date and Time
Discharge Date/Time: 02/26/25 14:41
Print Language: PERSIAN
[2025-02-26 14:18] VITALS: BP 141/78
== END 2025-02-26 14:41 | disposition home or self-care (01) | DRG 920 ==
LOC: 2 SOUTH 19:38
PROVIDERS: Emergency Medicine; Internal Medicine; Physician Assistant Medical; ADMITTING PHYSICIAN Hospitalist; ATTENDING PHYSICIAN Hospitalist; CONSULT PHYSICIAN Internal Medicine; EMERGENCY PHYSICIAN Emergency Medicine; FAMILY PHYSICIAN Family Medicine
PROC: 0W3P8ZZ Control Bleeding in Gastrointestinal Tract, Via Natural or Artificial Opening Endoscopic (ICD-10-PCS; 2025-02-25)
DX: K91.840 Postprocedural hemorrhage of a digestive system organ or structure following a digestive system procedure (principal); D62 Acute posthemorrhagic anemia; K92.1 Melena; Y83.8 Other surgical procedures as the cause of abnormal reaction of the patient, or of later complication, without mention of misadventure at the time of the procedure; I10 Essential (primary) hypertension; E78.5 Hyperlipidemia, unspecified; G47.33 Obstructive sleep apnea (adult) (pediatric); K44.9 Diaphragmatic hernia without obstruction or gangrene; K22.70 Barrett's esophagus without dysplasia; K31.7 Polyp of stomach and duodenum
CPT/HCPCS: 80048; 80053; 83690; 85014; 85018; 85025; 85027; 86850; 86900; 86901; 96361; 96374; 99285; J2916; J3480